=== PATIENT | female | born 1980 ===

== ENCOUNTER 2017-02-22 19:14 | Emergency (ER) | payer SELFPAY ==
[2017-02-22 19:14] VITALS: BMI 30.5
[2017-02-22 19:22] VITALS: RESP 16; TEMP 98.4; O2SAT 98
[2017-02-22] MEDS ORDERED: Lactated Ringer's 1,000 ML IV SCH (19:45)
[2017-02-22] MEDS ORDERED: Iohexol 240 (50 ml) PO ONE (19:46)
--- NOTE | 2017-02-22 19:50 | C.PDOC ---
History Of Present Illness 36 year old female presents to the ER with a complaint of lower abdominal pain since 14:00, associated with slight nausea. Denies dysuria, diarrhea, or fever. Chief Complaint (Nursing): Abdominal Pain History Per: Patient History/Exam Limitations: no limitations Onset/Duration Of Symptoms: Hrs Current Symptoms Are (Timing): Still Present Location Of Pain/Discomfort: RLQ, LLQ Radiation Of Pain To:: None Quality Of Discomfort: Unable To Describe Associated Symptoms: Nausea. denies: Fever, Chills, Diarrhea, Urinary Symptoms Exacerbating Factors: None Alleviating Factors: None Recent travel outside of the [place]: No Abnormal Vaginal Bleeding: No Past Medical History Reviewed: Historical Data, Nursing Documentation, Vital Signs Vital Signs: Last Vital Signs Temp 98.4 F 02/22/17 19:20 Pulse 74 02/22/17 19:20 Resp 16 02/22/17 19:20 BP 111/75 02/22/17 19:20 Pulse Ox 98 02/22/17 19:51 - Medical History PMH: No Chronic Diseases Surgical History: - [facility] Procedures ASPIRAT CURET-POST DELIV (10/28/14) Family History: States: Stroke, Hypertension - Social History Hx Alcohol Use: No Hx Substance Use: No - Immunization History Hx Tetanus Toxoid Vaccination: No Hx Influenza Vaccination: No Hx Pneumococcal Vaccination: No Review Of Systems Constitutional: Negative for: Fever, Chills Gastrointestinal: Positive for: Nausea, Abdominal Pain. Negative for: Diarrhea Genitourinary: Negative for: Dysuria Physical Exam - Physical Exam Appears: Non-toxic, Other (Moderate distress) Skin: Normal Color, Warm, Dry Head: Atraumatic, Normacephalic Eye(s): bilateral: Normal Inspection Oral Mucosa: Moist Chest: Symmetrical Cardiovascular: Rhythm Regular Respiratory: Normal Breath Sounds, No Rales, No Rhonchi, No Wheezing Gastrointestinal/Abdominal: Soft, Tenderness (LLQ), No Guarding, No Rebound Neurological/Psych: Oriented x3, Normal Speech, Other (No focal deficits) ED Course And Treatment - Laboratory Results Result Diagrams: 02/22/17 20:20 02/22/17 20:20 O2 Sat by Pulse Oximetry: 98 (Room air) Pulse Ox Interpretation: Normal Progress Note: CT abd/pel, blood work, and urinalysis ordered. Bentyl and IV fluids administered. Disposition Counseled Patient/Family Regarding: Diagnosis - Disposition Referrals: [facility] [Outside] Disposition: HOME/ ROUTINE Disposition Time: 22:36 Condition: STABLE Prescriptions: Dicyclomine [Bentyl] 10 mg PO QID #14 cap Instructions: Abdominal Pain (ED), Enteritis (ED) Forms: [facility] (Persian), Gen Discharge Inst Kosovan - POA Present On Arrival: None - Clinical Impression Clinical Impression: Abdominal pain, Enteritis - Scribe Statement The provider has reviewed the documentation as recorded by the Scribrichard Hunt All medical record entries made by the Pauloibrichard were at my direction and personally dictated by me. I have reviewed the chart and agree that the record accurately reflects my personal performance of the history, physical exam, medical decision making, and the department course for this patient. I have also personally directed, reviewed, and agree with the discharge instructions and disposition.
[2017-02-22] MEDS ORDERED: Iohexol 240 (50 ml) ONE (20:00)
[2017-02-22] MEDS ORDERED: Lactated Ringer's 1,000 ML ONE (20:00)
[2017-02-22 20:27] LABS: RBC URINE < 1 /hpf (0-3); URINE BACTERIA RARE (<OCC); URINE BILIRUBIN NEGATIVE (NEGATIVE); URINE BLOOD NEGATIVE (NEGATIVE); URINE COLOR Colorless (YELLOW); URINE GLUCOSE (UA) NORMAL (Normal); URINE KETONE NEGATIVE (NEGATIVE); URINE LEUKOCYTE ESTERASE NEG Leu/uL (Negative); URINE PROTEIN NEGATIVE (NEGATIVE); URINE UROBILINOGEN NORMAL mg/dL (0.2-1.0); WBC URINE < 1 /hpf (0-5)
[2017-02-22 20:28] LABS: BASO % 0.3 % (0.0-2.0); EOS # 0.3 K/uL (0.0-0.7); HEMATOCRIT 35.5 % (34.0-47.0); LYMPH # 2.1 K/uL (1.0-4.3); LYMPH % 25.9 % (20.0-40.0); MEAN CELL VOLUME 88.4 fL (81.0-99.0); MEAN CORPUSCULAR HEMOGLOBIN 29.7 pg (27.0-31.0); MEAN CORPUSCULAR HGB CONC 33.6 g/dL (33.0-37.0); MEAN PLATELET VOLUME 10.7 fL (7.2-11.7); MONO # 0.4 K/uL (0.0-0.8); MONO % 5.4 % (0.0-10.0); RED CELL DISTRIBUTION WIDTH 13.3 % (11.5-14.5); WHITE BLOOD COUNT 8.1 K/uL (4.8-10.8)
[2017-02-22 20:37] LABS: ALKALINE PHOSPHATASE 73 U/L (38-126); ALT/SGPT 27 U/L (9-52); AST/SGOT 29 U/L (14-36); BILIRUBIN,TOTAL 0.2 mg/dL (0.2-1.3); BLOOD UREA NITROGEN 10 mg/dL (7-17); CALCIUM 8.1 mg/dl (8.6-10.4); CARBON DIOXIDE 24 mmol/L (22-30); CHLORIDE 105 mmol/L (98-107); GFR AFRICAN-AMERICAN > 60; GLUCOSE,RANDOM 88 mg/dL (65-105); POTASSIUM 3.6 mmol/L (3.6-5.2); SODIUM 137 mmol/L (132-148); TOTAL PROTEIN 7.6 g/dL (6.3-8.3)
--- NOTE | 2017-02-22 22:29 | CT ---
EXAM: CT Abdomen and Pelvis With Intravenous Contrast EXAM DATE/TIME: 02/22/2017 7:46 PM CLINICAL HISTORY: 36 years old, female; Pain; Abdominal pain; Localized; Left lower quadrant (llq); Additional info: Llq abd pain TECHNIQUE: Axial computed tomography images of the abdomen and pelvis with intravenous contrast. All CT scans at this facility use one or more dose reduction techniques, viz.: automated exposure control; ma/kV adjustment per patient size (including targeted exams where dose is matched to indication; i.e. head); or iterative reconstruction technique. No reconstructions were provided. CONTRAST: 100 mL of burl622 administered intravenously. COMPARISON: No relevant prior studies available. FINDINGS: The liver is normal. The spleen is normal. The pancreas is normal. No gallstones. No hydronephrosis or perinephric stranding. A few scattered colonic diverticuli are noted. A normal appendix is identified images 115 through 130. The uterus and ovaries are normal. No aortic aneurysm or dissection. IMPRESSION: No acute findings.
[2017-02-22 22:49] VITALS: BP 132/78; PULSE 78
== END 2017-02-22 22:48 | disposition home or self-care (01) ==
LOC: C.ER 19:14
DX: K52.9 Noninfective gastroenteritis and colitis, unspecified (principal); R10.32 Left lower quadrant pain
CPT/HCPCS: 74177; 80053; 81001; 83690; 84703; 85025; 96360; 96372; 99284; J0500; J7120; Q9966

== ENCOUNTER 2017-09-06 11:20 | Emergency (ER) | payer OTHER ==
[2017-09-06 11:20] VITALS: BMI 30.5
[2017-09-06 11:28] VITALS: BP 107/73; TEMP 99.1
--- NOTE | 2017-09-06 11:58 | C.PDOC ---
History Of Present Illness 36 year old female 6 weeks presents to the ED c/o cough, nasal congestion , post tussive chest pain for the past 10 days. Patient reports she was taking OTC medication at home but stopped due to not knowing if it was going to affect . Patient's LMP was on July 24. Patient denies fever , chills, vomiting, vaginal bleeding, vaginal discharge. Time Seen by Provider: 09/06/17 11:33 Chief Complaint (Nursing): Cough, Cold, Congestion History Per: Patient History/Exam Limitations: no limitations Onset/Duration Of Symptoms: Days (10) Current Symptoms Are (Timing): Still Present Location Of Pain: Throat Sick Contacts (Context): None Associated Symptoms: Cough, Nasal Congestion. denies: Fever, Chills Ear Symptoms: Bilateral: None Recent travel outside of the [place]: No Additional History Per: Patient Past Medical History Reviewed: Historical Data, Nursing Documentation, Vital Signs Vital Signs: Last Vital Signs Temp 99.1 F 09/06/17 11:26 Pulse 86 09/06/17 11:26 Resp 16 09/06/17 11:26 BP 107/73 09/06/17 11:26 Pulse Ox 98 09/06/17 12:01 - Medical History PMH: No Chronic Diseases Surgical History: - [facility] Procedures ASPIRAT CURET-POST DELIV (10/28/14) Family History: States: Stroke, Hypertension - Social History Hx Alcohol Use: No Hx Substance Use: No - Immunization History Hx Tetanus Toxoid Vaccination: No Hx Influenza Vaccination: No Hx Pneumococcal Vaccination: No Review Of Systems Constitutional: Negative for: Fever, Chills ENT: Positive for: Nose Congestion. Negative for: Throat Pain Respiratory: Positive for: Cough. Negative for: Shortness of Breath Gastrointestinal: Negative for: Nausea, Vomiting Genitourinary: Negative for: Vaginal Discharge, Vaginal Bleeding Skin: Negative for: Rash Physical Exam - Physical Exam Appears: Non-toxic, No Acute Distress Skin: Normal Color, Warm, Dry Head: Atraumatic, Normacephalic Eye(s): bilateral: Normal Inspection Ear(s): Bilateral: Normal Nose: No Discharge Oral Mucosa: Moist Throat: Normal, No Erythema, No Exudate Neck: Normal ROM, Supple Chest: Symmetrical Cardiovascular: Rhythm Regular Respiratory: Normal Breath Sounds, No Rales, No Rhonchi, No Wheezing Extremity: Normal ROM, No Tenderness, No Swelling Neurological/Psych: Oriented x3, Normal Speech Gait: Steady ED Course And Treatment O2 Sat by Pulse Oximetry: 98 (ON RA) Pulse Ox Interpretation: Normal Medical Decision Making Medical Decision Making: Impression: cough, congestion for the past 10 days Plan: * Albuterol 2.5 mg INH * Prednisone 40 mg PO Patient feeling much better, Disposition Counseled Patient/Family Regarding: Need For Followup, Rx Given - Disposition Referrals: [facility] [Outside] Disposition: HOME/ ROUTINE Disposition Time: 12:57 Condition: STABLE Prescriptions: Albuterol HFA [Ventolin HFA 90 mcg/actuation (8 g)] 1 puff IH QID PRN #1 puff PRN Reason: Cough Prednisone [Deltasone] 40 mg PO DAILY #6 tablet Instructions: Acute Bronchitis Forms: [facility] (Romansh), Gen Discharge Inst Romansh - POA Present On Arrival: None - Clinical Impression Clinical Impression: Bronchitis - Scribe Statement The provider has reviewed the documentation as recorded by the Scribrichard Casas All medical record entries made by the Scribe were at my direction and personally dictated by me. I have reviewed the chart and agree that the record accurately reflects my personal performance of the history, physical exam, medical decision making, and the department course for this patient. I have also personally directed, reviewed, and agree with the discharge instructions and disposition.
[2017-09-06] MEDS: Albuterol 0.083% Inhal Sol (2.5 mg/3 mL) UD INH SCH ×2 (12:00→12:11)
[2017-09-06] MEDS ORDERED: Albuterol 0.083% Inhal Sol (2.5 mg/3 mL) UD ONE (12:03)
[2017-09-06 13:02] VITALS: PULSE 99; RESP 18; O2SAT 99
== END 2017-09-06 13:02 | disposition home or self-care (01) ==
LOC: C.ER 11:20
DX: O26.891 Other specified pregnancy related conditions, first trimester (principal); J40 Bronchitis, not specified as acute or chronic; Z3A.00 Weeks of gestation of pregnancy not specified

== ENCOUNTER 2017-10-02 22:07 | Emergency (ER) | payer SELFPAY ==
[2017-10-02 22:08] VITALS: BMI 30.5
[2017-10-02 22:15] VITALS: O2SAT 98
[2017-10-02 23:14] LABS: BASO % 0.6 % (0.0-2.0); EOS # 0.3 K/uL (0.0-0.7); EOS % 4.4 % (0.0-4.0); HEMOGLOBIN 11.1 g/dL (11.0-16.0); LYMPH # 1.6 K/uL (1.0-4.3); LYMPH % 20.5 % (20.0-40.0); MEAN CELL VOLUME 88.5 fL (81.0-99.0); MEAN CORPUSCULAR HEMOGLOBIN 30.1 pg (27.0-31.0); MEAN PLATELET VOLUME 10.5 fL (7.2-11.7); MONO # 0.8 K/uL (0.0-0.8); NEUT # 5.1 K/uL (1.8-7.0); NEUT % 64.5 % (50.0-75.0); RBC 3.67 Mil/uL (3.80-5.20); RED CELL DISTRIBUTION WIDTH 13.3 % (11.5-14.5); WHITE BLOOD COUNT 7.9 K/uL (4.8-10.8)
[2017-10-02 23:17] LABS: SQUAMOUS EPITHIAL 6 /hpf (0-5); URINE BACTERIA RARE (<OCC); URINE BILIRUBIN NEGATIVE (NEGATIVE); URINE BLOOD NEGATIVE (NEGATIVE); URINE CLARITY Clear (Clear); URINE COLOR Straw (YELLOW); URINE GLUCOSE (UA) NORMAL (Normal); URINE LEUKOCYTE ESTERASE NEG Leu/uL (Negative); URINE PROTEIN NEGATIVE (NEGATIVE); URINE UROBILINOGEN NORMAL mg/dL (0.2-1.0)
[2017-10-02 23:27] LABS: ALB/GLOB RATIO 1.5 (1.0-2.1); ALBUMIN 3.8 g/dL (3.5-5.0); ALT/SGPT 17 U/L (9-52); AST/SGOT 23 U/L (14-36); BLOOD UREA NITROGEN 7 mg/dL (7-17); CALCIUM 8.5 mg/dl (8.6-10.4); GFR AFRICAN-AMERICAN > 60; GFR NON-AFRICAN AMERICAN > 60
--- NOTE | 2017-10-03 | C.PDOC ---
History Of Present Illness 36 year old female who is 10 weeks by date presents to the ED c/o vaginal spotting. Patient reports she has not had any prior US for her . Patient is also c/o lower abdominal pain since this morning as well. Time Seen by Provider: 10/02/17 22:47 Chief Complaint (Nursing): Abdominal Pain History Per: Patient History/Exam Limitations: no limitations Onset/Duration Of Symptoms: Hrs Current Symptoms Are (Timing): Still Present Location Of Pain/Discomfort: Suprapubic Radiation Of Pain To:: None Quality Of Discomfort: Cramping Exacerbating Factors: None Alleviating Factors: None Recent travel outside of the [place]: No Additional History Per: Patient Abnormal Vaginal Bleeding: No Past Medical History Reviewed: Historical Data, Nursing Documentation, Vital Signs Vital Signs: Last Vital Signs Temp 98.3 F 10/03/17 00:15 Pulse 74 10/03/17 00:15 Resp 18 10/03/17 00:15 BP 106/76 10/03/17 00:15 Pulse Ox 98 10/03/17 00:47 - Medical History PMH: No Chronic Diseases Surgical History: - [facility] Procedures ASPIRAT CURET-POST DELIV (10/28/14) Family History: States: Stroke, Hypertension - Social History Hx Alcohol Use: No Hx Substance Use: No - Immunization History Hx Tetanus Toxoid Vaccination: No Hx Influenza Vaccination: No Hx Pneumococcal Vaccination: No Review Of Systems Constitutional: Negative for: Fever, Chills Cardiovascular: Negative for: Chest Pain, Palpitations Respiratory: Negative for: Shortness of Breath Gastrointestinal: Positive for: Abdominal Pain Genitourinary: Positive for: Vaginal Discharge Musculoskeletal: Negative for: Back Pain Physical Exam - Physical Exam Appears: Non-toxic, No Acute Distress Skin: Normal Color, Warm, Dry Head: Atraumatic, Normacephalic Eye(s): bilateral: Normal Inspection Oral Mucosa: Moist Neck: Normal ROM, Supple Chest: Symmetrical Cardiovascular: Rhythm Regular Respiratory: Normal Breath Sounds, No Rales, No Rhonchi, No Wheezing Gastrointestinal/Abdominal: Soft, Tenderness (diffuse suprapubic), No Guarding, No Rebound, Other (gravid) Extremity: Normal ROM, No Tenderness, No Swelling Neurological/Psych: Oriented x3, Normal Speech Gait: Steady ED Course And Treatment - Laboratory Results Result Diagrams: 10/02/17 23:10 10/02/17 23:10 Lab Interpretation: Normal (O+,) Urine POC: Positive O2 Sat by Pulse Oximetry: 98 (ON RA) Pulse Ox Interpretation: Normal Reevaluation Time: 00:01 Reassessment Condition: Improved Medical Decision Making Medical Decision Making: IUP sub chorionic hemorrhage Disposition Doctor Will See Patient In The: Office Counseled Patient/Family Regarding: Studies Performed, Diagnosis - Disposition Referrals: [facility] [Outside] [facility] [Outside] [facility] [Outside] [facility] [Outside] Disposition: HOME/ ROUTINE Disposition Time: 00:02 Condition: GOOD Additional Instructions: sigue con [facility] para aline cuidados prenatales Sigue tomando paul vitamina diario 9 semanas, 3 strong, humberto latando O+ Instructions: Threatened Miscarriage, - The Third Month Forms: [employer] (Cuban) Print Language: GERMAN - Clinical Impression Clinical Impression: - Scribe Statement The provider has reviewed the documentation as recorded by the Scribe Miller Caass All medical record entries made by the Scribe were at my direction and personally dictated by me. I have reviewed the chart and agree that the record accurately reflects my personal performance of the history, physical exam, medical decision making, and the department course for this patient. I have also personally directed, reviewed, and agree with the discharge instructions and disposition.
[2017-10-03 00:15] VITALS: BP 106/76; PULSE 74; RESP 18; TEMP 98.3
--- NOTE | 2017-10-03 17:35 | US ---
PROCEDURE: OB Pelvic Ultrasound HISTORY: 10 weeks, spotting LMP: 07/24/2017 COMPARISON: None available. FINDINGS: UTERUS: Gestational sac: MSD = 3.84 cm = 8 weeks 1 day. Heart rate: 126 bpm. age (Ultrasound estimated 9 weeks 3 days 0 weeks 5 days Shelley-gestational hemorrhage: Small subchorionic hemorrhage measuring approximately 1.1 x 1.0 cm. Date of delivery (Ultrasound estimated) : 05/04/2017 Uterus measures 13.1 x 5.0 x 8.3 cm. Normal in size and appearance. CERVIX: Measures 3.52 cm. Long and closed. No cervical abnormality seen. RIGHT OVARY: Measures 2.9 x 2.4 x 2.7 cm. No mass lesion. Normal flow. LEFT OVARY: Measures 2.6 x 1.9 x 2.4 cm. No solid mass. Normal flow. FREE FLUID: None. OTHER FINDINGS: None. IMPRESSION: Single living intrauterine gestation with average ultrasound age 9 weeks 3 days 0 weeks 5 days. heart rate document at 126 BPM There is a small subchorionic hemorrhage as above. Preliminary report provided by overnight radiology service
== END 2017-10-03 00:16 | disposition home or self-care (01) ==
LOC: C.ER 22:07
DX: O20.9 Hemorrhage in early pregnancy, unspecified (principal); Z3A.09 9 weeks gestation of pregnancy

== ENCOUNTER 2018-01-19 21:00 | Emergency (ER) | payer OTHER ==
[2018-01-19 21:31] VITALS: BMI 26.4
[2018-01-19 22:06] LABS: SQUAMOUS EPITHIAL 1 /hpf (0-5); URINE BACTERIA RARE (<OCC); URINE BILIRUBIN NEGATIVE (NEGATIVE); URINE BLOOD NEGATIVE (NEGATIVE); URINE CLARITY Clear (Clear); URINE COLOR Straw (YELLOW); URINE GLUCOSE (UA) NORMAL (Normal); URINE LEUKOCYTE ESTERASE TRACE Leu/uL (Negative); URINE PROTEIN NEGATIVE (NEGATIVE); URINE UROBILINOGEN NORMAL mg/dL (0.2-1.0)
--- NOTE | 2018-01-20 00:16 | OBHP ---
Datetime: 01/19/2018 23:54 IP Adm Impression: , intrauterine ; No Active Labor; Intact Membranes IP Admit Plan: Discharge home Admit Comment, IP Provider: 37 y.o. , LMP 07/24/17, RANDY 05/01/18, EGA 25 weeks c/o generalized abdominal, pelvic and left sided abdominal pain, onset 1200 hours. Actually, had a bout of similar pa in Thursday which resolved spontaneously. Pain scale 3/10; described as a heaviness, and accompanied by heartburn. Last had sexual intercourse 2 or 3 days ago. Denies dizziness, headaches, blurred visi on or spots. Youngest child has been coughing sporadically x 2 days. Denies cough or fever; but is a little stuffy, (+) post nasal drip. care: [facility]; next appointment, Thu01/27/18. Jessica merced issue: AMA, prev C/S. P Ob: x 2: 2003, male, 7lb. 2006, female, 6+lb. 2009, C/S. male, 7lb - transverse lie. All a t [facility]; no complications. 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 HPV(+). denies myomata, abnormal Pap, ovarian cysts PMH: denies PSH: C/S; D_C; I_D of left ?parotid gland abscess, age 4 NKDA Meds: PNV Soc Hx: denies tobacco, illicit drug or EtOH use. . 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 Attempts to drink 6 bottles of water daily P.E.: as above. Mildly obese, in NAD. Awake, alert, oriented to time, person and place. Pleasant a nd cooperative. - U.A: trace leuk esterase, S.G. 1.002, pH 7 Assessment: 37 y.o. P3013, 25 weeks, prev C/S, generalized abdominal pain: aetiology unclear. DDx: musculoskeletal fatigue, post nasal drip. FHR appropriate for gestational age. Clinically stable. Plan: 1) Discharge home 2) Benadryl 25 mg p.o. as directed 3) TUMS, take as directed 4) Keep scheduled appointment Pelvic Type - PN: Adequate Extremities - PN: Normal Abdomen - PN: Normal Back - PN: Normal Breast - PN: Not Done Lungs - PN: Normal Heart - PN: Normal Thyroid - PN: Not Done Neurologic - PN: Normal HEENT - PN: Normal General - PN: Normal FHR - Baseline A Provider: 130 Contraction Comments Provider: none Comments, ACOG Physical Exam: Abdomen: Obese. Gravid. Soft. Minimal Left sided discomfort. Healed Pf annenstiel scar All other systems reviewed and are negative Gestation - Est Wks by US: 25.0 EGA AdmitDate IP: 25.0 IP Chief Complaint: Maternal discomfort NICHD Variability Prov Fetus A: Moderate 6-25bpm NICHD Decel Fetus A IP Provider: None Dilatation, Provider: 0 Effacement, Provider: 0 Station, Provider: n/a Genitourinary Exam: Normal DTRs - PN: Not Done
[2018-01-20 10:54] VITALS: BP 107/67; PULSE 76; RESP 20; TEMP 97.5
== END 2018-01-20 00:04 | disposition home or self-care (01) ==
LOC: C.EROB 21:00
DX: O26.892 Other specified pregnancy related conditions, second trimester (principal); R10.9 Unspecified abdominal pain; R10.2 Pelvic and perineal pain; Z3A.25 25 weeks gestation of pregnancy

== ENCOUNTER 2018-04-05 10:54 | Outpatient (CLI) | payer OTHER | END 2018-04-05 10:55 | disposition home or self-care (01) | LOC: C.LAB 10:54 | DX: Z34.80 Encounter for supervision of other normal pregnancy, unspecified trimester (principal) ==

== ENCOUNTER 2018-04-23 06:50 | Inpatient (IN) | payer SELFPAY ==
[2018-04-23 07:20] VITALS: BMI 27.4
[2018-04-23] MEDS ORDERED: Lactated Ringer's 1,000 ML IV ONE (07:20)
[2018-04-23] MEDS ORDERED: cefOXitin IV 2 gm in Dextrose 2 GM/50 ML BAG IVPB ONE ×2 (07:24→08:03)
[2018-04-23] MEDS ORDERED: Lactated Ringer's 1,000 ML IV SCH (07:30)
[2018-04-23] MEDS ORDERED: Sodium Citrate/Citric Acid 15 ml Sol PO ONE (07:45)
[2018-04-23] MEDS ORDERED: Sodium Citrate/Citric Acid 15 ml Sol ONE (08:03)
[2018-04-23] MEDS ORDERED: Oxytocin 20 units in LR 2,000 ML IV ONE (08:03)
[2018-04-23 08:12] LABS: BASO % 0.4 % (0.0-2.0); EOS # 0.3 K/uL (0.0-0.7); EOS % 4.7 % (0.0-4.0); HEMOGLOBIN 11.9 g/dL (11.0-16.0); LYMPH # 1.4 K/uL (1.0-4.3); LYMPH % 21.7 % (20.0-40.0); MEAN CELL VOLUME 88.2 fL (81.0-99.0); MEAN CORPUSCULAR HEMOGLOBIN 29.6 pg (27.0-31.0); MEAN CORPUSCULAR HGB CONC 33.5 g/dL (33.0-37.0); MEAN PLATELET VOLUME 12.1 fL (7.2-11.7); MONO # 0.5 K/uL (0.0-0.8); MONO % 7.5 % (0.0-10.0); NEUT # 4.4 K/uL (1.8-7.0); NEUT % 65.7 % (50.0-75.0); NRBC % 0.1 % (0.0-2.0); RBC 4.01 Mil/uL (3.80-5.20); RED CELL DISTRIBUTION WIDTH 13.9 % (11.5-14.5); WHITE BLOOD COUNT 6.6 K/uL (4.8-10.8)
[2018-04-23 08:17] LABS: SQUAMOUS EPITHIAL 3 /hpf (0-5); URINE BACTERIA RARE (<OCC); URINE BILIRUBIN NEGATIVE (NEGATIVE); URINE BLOOD NEGATIVE (NEGATIVE); URINE CLARITY Clear (Clear); URINE COLOR Straw (YELLOW); URINE GLUCOSE (UA) NORMAL (Normal); URINE LEUKOCYTE ESTERASE NEG Leu/uL (Negative); URINE PROTEIN NEGATIVE (NEGATIVE); URINE UROBILINOGEN NORMAL mg/dL (0.2-1.0)
[2018-04-23 08:36] LABS: ALB/GLOB RATIO 1.2 (1.0-2.1); ALBUMIN 3.9 g/dL (3.5-5.0); ALT/SGPT 6 U/L (9-52); AST/SGOT 24 U/L (14-36); BLOOD UREA NITROGEN 9 mg/dL (7-17); CALCIUM 8.7 mg/dl (8.6-10.4); GFR NON-AFRICAN AMERICAN > 60
[2018-04-23] MEDS ORDERED: Morphine 1 mg/ml preservative-free Inj(Duramorph) ONE (08:54)
[2018-04-23] MEDS ORDERED: Phenylephrine 10 mg/ml Inj ONE (08:54)
[2018-04-23] MEDS ORDERED: Oxycodone/Acetaminophen 5/325 mg Tab PO PRN (10:23)
--- NOTE | 2018-04-23 12:42 | PCM.SURG1 ---
Surgeon's Initial Post Op Note - Surgeon's Notes Surgeon: Latha Gerber MD Counter Person: Alvarado Fox MD; 2nd Asst: Nat Alexis DO, PGY-1 Type of Anesthesia: Spinal Anesthesia Administered By: Isaias Cazares DO Pre-Operative Diagnosis: 39 weeks gestation; Advanced maternal age; previous C/S; desires permanent sterilization. Operative Findings: Manuelito breech. Live, male infant. LSA position, weight 6lb 7oz; 's 9/9. Cord pH 7.31. Normal uterus; normal ovaries and fallopian tubes, bilaterally. Post-Operative Diagnosis: same; Breech presentation Operation Performed: repeat LTCS; bilateral total salpingectomy Specimen/Specimens Removed: Right and left fallopian tubes Estimated Blood Loss: EBL {In ML}: 600 (U.O. 300 mL, clear; IVFs 1,100 mL LR with 20 units pitocin) Blood Products Given: N/A Drains Used: No Drains Post-Op Condition: Good Date of Surgery/Procedure: 04/23/18 Time of Surgery/Procedure: 10:30
--- NOTE | 2018-04-23 15:50 | OBHP ---
Datetime: 04/23/2018 07:12 IP Adm Impression: Term, intrauterine ; No Active Labor IP Admit Plan: Admit to unit; Initiate Section protocol Admit Comment, IP Provider: Patient predomnantly Amharic-speaking; Itzel Giancarlo Gomez, served as arrington slator 37 y.o. , LMP 07/26/15, RANDY 05/04/18, EGA 39 weeks, previous C/S for elective repeat C/S and permanent sterilization. (+) AFM; denies lOF, VB. (+) occ and mild Ctx. P care: [facility]; A MA; previous C/S. Consent for sterilization signed 02/10/18. P Ob: x 2, 2003, male, 7lb 5oz; 2006, female, 6lb 12oz, 2009, C/S, male, 7lb 2oz, Breech. All at [facility]; no complications. 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 Denies STIs except HPV(+). Denies h/o myomata, ovarian cysts or abnormal Pap PMH: denies PSH: C/S, D_C Allergies: ibuprofen = rash No food allergies Meds: PNV - QD Soc Hx: denies tobacco, illicit drug or EtOH use. x 2 1/2 years; together 10 years. Unempl oyed. Lives with and children Fam Hx: Mother age 65 - complications from DM. Father age 70 - CVA. Older siste r - uterine cancer P.E.: as above. WD in NAD. Awake, alert, oriented to time, person and place. Pleasant and cooperat ronnie. present Assessment: 37 y.o. P3013, 39 weeks, previous C/S for elective repeat C/S. Patient has reaffirmed desire for permanent sterilization. Possible risks and complications for the anticipated procedures were discussed; patient offered no questions. Consents were signed, dated, witnessed and placed in pa tient's chart. Patient last ate 1900 hours; last drank at 2200 hours. Category 1 tracing. Patient is clincially stable. 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 Pelvic Type - PN: Not Done Extremities - PN: Normal Abdomen - PN: Normal Back - PN: Normal Breast - PN: Not Done Lungs - PN: Normal Heart - PN: Normal Thyroid - PN: Not Done Neurologic - PN: Normal HEENT - PN: Normal General - PN: Normal FHR - Baseline A Provider: 125 Contraction Comments Provider: irregular Comments, ACOG Physical Exam: Abdomen: Obese. Gravid. Soft, non tender. Healed Pfannenstiel scar. Fu ndal height 39cm All other systems reviewed and arenegative Gestation - Est Wks by US: 39.0 IP Hx Assessment: The History has been Reviewed and is Current EGA AdmitDate IP: 39.0 IP Chief Complaint: Scheduled Section NICHD Variability Prov Fetus A: Moderate 6-25bpm NICHD Accel Fetus A IP Provider: 15X15 FHR Category Provider Fetus A: Category I NICHD Decel Fetus A IP Provider: None Dilatation, Provider: deferred Genitourinary Exam: Not Done DTRs - PN: Not Done
--- NOTE | 2018-04-23 15:53 | OBADHP ---
Datetime: 04/23/2018 07:12 Admit Comment, IP Provider: Patient predomnantly Tuvaluan-speaking; Itzel GomezGiancarlo, served as arrington slator 37 y.o. , LMP 07/26/15, RANDY 05/04/18, EGA 39 weeks, previous C/S for elective repeat C/S and permanent sterilization. (+) AFM; denies lOF, VB. (+) occ and mild Ctx. P care: [facility]; A MA; previous C/S. Consent for sterilization signed 02/10/18. P Ob: x 2, 2003, male, 7lb 5oz; 2006, female, 6lb 12oz, 2009, C/S, male, 7lb 2oz, Breech. All at [facility]; no complications. 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 Denies STIs except HPV(+). Denies h/o myomata, ovarian cysts or abnormal Pap PMH: denies PSH: C/S, D_C Allergies: ibuprofen = rash No food allergies Meds: PNV - QD Soc Hx: denies tobacco, illicit drug or EtOH use. x 2 1/2 years; together 10 years. Unempl oyed. Lives with and children Fam Hx: Mother age 65 - complications from DM. Father age 70 - CVA. Older siste r - uterine cancer P.E.: as above. WD in NAD. Awake, alert, oriented to time, person and place. Pleasant and cooperat ronnie. present Assessment: 37 y.o. P3013, 39 weeks, previous C/S for elective repeat C/S. Patient has reaffirmed desire for permanent sterilization. Possible risks and complications for the anticipated procedures were discussed; patient offered no questions. Consents were signed, dated, witnessed and placed in mona nur's chart. Patient last ate 1900 hours; last drank at 2200 hours. Category 1 tracing. Patient is clincially stable. 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 Pelvic Type - PN: Not Done Extremities - PN: Normal Abdomen - PN: Normal Back - PN: Normal Breast - PN: Not Done Lungs - PN: Normal Heart - PN: Normal Thyroid - PN: Not Done Neurologic - PN: Normal HEENT - PN: Normal General - PN: Normal FHR - Baseline A Provider: 125 Contraction Comments Provider: irregular Comments, ACOG Physical Exam: Abdomen: Obese. Gravid. Soft, non tender. Healed Pfannenstiel scar. Fu ndal height 39cm All other systems reviewed and arenegative Gestation - Est Wks by US: 39.0 IP Hx Assessment: The History has been Reviewed and is Current Vital Signs Provider: Reviewed; Within Normal Limits IP Chief Complaint: Scheduled Section NICHD Variability Prov Fetus A: Moderate 6-25bpm NICHD Accel Fetus A IP Provider: 15X15 FHR Category Provider Fetus A: Category I NICHD Decel Fetus A IP Provider: None Dilatation, Provider: deferred Genitourinary Exam: Not Done DTRs - PN: Not Done EGA AdmitDate IP: 39.0 IP Adm Impression: Term, intrauterine ; No Active Labor IP Admit Plan: Admit to unit; Initiate Section protocol Datetime: 01/19/2018 23:54 Effacement, Provider: 0 Station, Provider: n/a
--- NOTE | 2018-04-23 16:10 | OBDS ---
DELIVERY PERSONNEL Delivery Doctor: Aubrey Gerber MD Scrub Nurse: Malgorzata Clancy Nutrition Faculty Member: Itzel Gomez Anesthesiologist: Dr Cazares Resident: Dr Alexis MATERNAL INFORMATION Delivery Anesthesia: Spinal Medications in Delivery: pitocin 20units Estimated Blood Loss (ml): 600 Placenta Cultured: No Maternal Complications: Other Other Maternal Complications: Previuos c/s GBS unknown Provider Comments: Uncomplicated, atraumatic breech extraction (incidental finding of Manuelito breech p resentation), live male , LSA position. Weight 6lb 7oz, 's 9/9. Cord pH 7.31. Unremarkabke bilateral total salpingectomy with Covidien apparatus. Hemostasis assured throughout the entire proc edure. Patient tolerated procedure well. Transferred back to LDR#2 in stable condition. LABOR SUMMARY EDC: 04/30/2018 00:00 No. Babies in Womb: 1 Attempted: No Labor Anesthesia: None LABOR INFORMATION Reason for Induction: Not Applicable Oxytocin: N/A Group B Beta Strep: Not Done STAGES OF LABOR Stage 3 hrs: 0 Stage 3 min: 1 CSECTION DELIVERY Primary Indication: Repeat Elective CSection Urgency: Elective CSection Incidence: Repeat Labor: N/A Elective: Elective CSection Incision: Lower Uterine Transverse BABY A INFORMATION Delivery Date/Time: 04/23/2018 09:30 Method of Delivery: Born in Route : No : N/A Forceps: N/A Vacuum Extraction: N/A Shoulder Dystocia : No SHOULDER DYSTOCIA BABY A Infant Delivery Date/Time: 04/23/2018 09:30 PRESENTATION/POSITION BABY A Presentation: Breech Breech Presentation: N/A PLACENTA INFORMATION BABY A Placenta Delivery Time : 04/23/2018 09:31 Placenta Method of Delivery: Manual Removal Placenta Status: Delivered SCORES BABY A Heart Rate 1 min: >100 bpm Resp Effort 1 min: Good Cry Reflex Irritability 1 min: Cough or Sneeze or Pulls Away Muscle Tone 1 min: Active Motion Color 1 min: Body Bostic, Extremities Blue Resuscitation Effort 1 min: Tactile Stimulation SCORE 1 MIN: 9 Heart Rate 5 min: >100 bpm Resp Effort 5 min: Good Cry Reflex Irritability 5 min: Cough or Sneeze or Pulls Away Muscle Tone 5 min: Active Motion Color 5 min: Body Bostic, Extremities Blue Resuscitation Effort 5 min: Tactile Stimulation SCORE 5 MIN: 9 INFANT INFORMATION BABY A Gestational Age at Delivery: 39.0 Gestational Status: Term Outcome : Liveborn Condition : Stable Sex: Male IDENTIFICATION/MEDS BABY A ID Band Number: [id number] ID Band Location: Left Leg; Left Arm Sensor Applied: Yes Sensor Number: [id number] Sensor Location : Cord Clamp WEIGHT/LENGTH BABY A Infant Birthweight (gms): 2910 Weight (lb): 6 Weight (oz): 7 Infant Length Inches: 19.50 Length cms: 49.5 CORD INFORMATION BABY A No. Cord Vessels: 3 Nuchal Cord : N/A Infant Cord pH Baby Venous: 7.32 Cord Blood Taken: Yes Suction: Mouth; Nose ASSESSMENT BABY A Infant Complications: None Physical Findings at Delivery: Within Normal Limits Respirations: Appears Normal Cold Water Machine Operator/ALS Called : No Care By: Dr Schwartz Transferred To: Remains with Mother
[2018-04-23] MEDS: Simethicone 80 mg Chewtab PO SCH ×3 (18:24→22:22)
--- NOTE | 2018-04-23 18:33 | OP ---
PROCEDURE DATE: 04/23/2018 SURGEON: Latha Gerber MD LACE FINISHER: Alvarado Fox MD SECOND FARM MARKETER: Nisha Alexis DO, PGY-1. ANESTHESIOLOGY: Isaias Cazares DO ANESTHESIA TYPE: Spinal. PREOPERATIVE DIAGNOSES: 39 weeks' gestation, advanced maternal age, previous Caesarean section, desires permanent sterilization. POSTOPERATIVE DIAGNOSES: 39 weeks' gestation, advanced maternal age, previous Caesarean section, desires permanent sterilization with a breech presentation. OPERATIVE FINDINGS: Live male infant, Manuelito breech left sacrum anterior position, weight 6 pounds 7 ounces, ';s 9 and 9 at 1 and 5 minutes respectively. Cord pH 7.31. Normal uterus and normal ovaries and fallopian tubes bilaterally. OPERATION PERFORMED: Repeat low transverse Caesarean section and bilateral total salpingectomy. SPECIMENS: Right and left fallopian tubes. ESTIMATED BLOOD LOSS: 600 mL. URINE OUTPUT: 300 mL of clear urine. INTRAVENOUS FLUIDS: 1100 mL of lactated Ringer's with 20 units of Pitocin. BLOOD PRODUCTS: None. COMPLICATIONS: None. PROCEDURE: The patient was taken to the operating room after having obtained informed consent for the anticipated procedure. This included a discussion of possible complications including but not limited to infection requiring antibiotics, hemorrhage requiring blood transfusion, repair of any damage to internal organs, possible Caesarean hysterectomy. It was reaffirmed that the patient desired permanent sterilization and the procedure that consisted of a total salpingectomy was discussed. The patient expressed an understanding. No questions were offered. Consent forms were signed, dated, witnessed and placed in the chart. The patient received Mefoxin 2 grams intravenously and a Jolley was inserted under sterile conditions. The patient was then transferred to the operating room in stable condition. She was placed on the operating room table in sitting position. Spinal anesthesia was administered without incident. She was immediately repositioned into supine position and the heart rate was auscultated at 125 beats per minute. The abdomen was prepped and she was subsequently draped in the usual sterile fashion. After assuring an adequate level of anesthesia, using a scalpel, a Pfannenstiel incision was made through the previous scar. The incision was carried down through the subcutaneous tissue using Bovie electrocautery. The fascia was identified, it was nicked in the midline and incision was extended bilaterally also using the Bovie electrocautery. The rectus muscles was dissected off the overlying fascia. Rectus muscle was then in the midline by sharp dissection. The parietal peritoneum was entered by blunt dissection. The vesicouterine reflection was identified and the bladder flap was created. A transverse incision was then made on the lower uterine segment. Upon performing amniotomy at which time a minimal amount of amniotic fluid was noted, the presenting part was noted to be the sacrum. Breech extraction was then performed by routine manner and the baby was delivered atraumatically. On the operative field, the infant's mouth and nose were bulb suctioned as umbilical cord was doubly clamped and cut. The infant was handed off the operative field to the compressor technician in attendance. A segment of the cord was obtained for cord pH analysis with the results as above. By manual extraction, the placenta was delivered. It was grossly intact with three vessels present in the cord. The uterus was then exteriorized for closure. This was done in two layers using 0 Vicryl; the first layer was in a running interlocking fashion, the second layer was in a horizontal imbricating fashion. After assuring adequate hemostasis, the pelvic viscera was examined with the findings as above. Attention was then directed to the left fallopian tube. At the fimbriated end and in the isthmic portion, the mesosalpinx were grasped using Newnan clamps. Then using the CovFITiSTen apparatus, complete salpingectomy was performed. Hemostasis was assured. The specimen was submitted to pathology. A similar procedure was performed on the left fallopian tube and again specimen was submitted to pathology for further confirmation. After assuring adequate hemostasis, attention was redirected to the uterine incision. The bladder flap was reapproximated using 2-0 chromic in a running fashion. The uterus was returned to the abdominal cavity and the paracolic gutters were cleared of all debris. Again hemostasis was assured. The parietal peritoneum was reapproximated using 3-0 chromic in a running fashion and the rectus muscle was reapproximated in midline also using 3-0 chromic in a running fashion. The fascia was reapproximated using 1-0 Vicryl in a running fashion. The subcutaneous tissue was reapproximated using plain 0 catgut in a running fashion and the skin was reapproximated using surgical clips. The patient was then repositioned in a frog-leg manner. Bimanual exploration was performed. The uterus was evacuated of additional clots and blood and it was noted to be contracted and firm. The patient was then transferred back to R #2 in stable condition. Mother and baby were bonding, both in stable condition. Dr. Alvarado Fox was present for the entire duration from beginning to end. His presence and expertise were needed for the followin. Assuring adequate visualization of the operative field at all times. 2. The safe and atraumatic delivery of the . 3. Assuring adequate hemostasis throughout. Latha Jim Gerber MD MTDD
[2018-04-23] MEDS: Oxycodone/Acetaminophen 5/325 mg Tab PO PRN (19:36)
[2018-04-24] MEDS: Oxycodone/Acetaminophen 5/325 mg Tab PO PRN ×4 (04:25→22:00)
[2018-04-24 07:39] LABS: HEMOGLOBIN 11.4 g/dL (11.0-16.0); MEAN CELL VOLUME 89.2 fL (81.0-99.0); MEAN CORPUSCULAR HEMOGLOBIN 29.4 pg (27.0-31.0); MEAN PLATELET VOLUME 11.6 fL (7.2-11.7); RBC 3.88 Mil/uL (3.80-5.20); RED CELL DISTRIBUTION WIDTH 13.9 % (11.5-14.5); WHITE BLOOD COUNT 8.6 K/uL (4.8-10.8)
[2018-04-24 08:45] VITALS: RESP 18
[2018-04-24] MEDS: Simethicone 80 mg Chewtab PO SCH ×4 (09:45→21:09)
[2018-04-24] MEDS: Prenatal Multivit/Folic Acid/Iron Tab PO SCH (09:45)
--- NOTE | 2018-04-24 10:11 | OBPPN ---
Datetime: 04/24/2018 09:37 PP Pain Prov: Within normal limits PP Nausea Prov: Denies PP Flatus Prov: Yes PP BM Prov: No PP Breasts Prov: Normal PP Abdomen/Uterus Prov: Normal PP Lochia Prov: Normal PP C/S Incision Prov: Normal PP Comments Phys Exam Prov: Incision: dressing removed incision C/D/I Abd: soft, appropriately tender to palpation no guarding PP Impression Prov: Normal progression PP Plan Prov: Continue present management PP Progress Note Prov: s/p C/S PPD#1, EBL: 600cc VSS Tolerating regular diet Encourage ambulation MOM, Colace PRN Continue present care IP PP Procedures: None Vital Signs Provider PP: Reviewed; Within Normal Limits
[2018-04-24 16:11] VITALS: PULSE 84
[2018-04-25] MEDS: Oxycodone/Acetaminophen 5/325 mg Tab PO PRN ×2 (03:10→13:06)
[2018-04-25 08:38] VITALS: BP 91/68; TEMP 97.3; O2SAT 98
[2018-04-25] MEDS: Simethicone 80 mg Chewtab PO SCH (09:27)
[2018-04-25] MEDS: Prenatal Multivit/Folic Acid/Iron Tab PO SCH (09:28)
[2018-04-25] MEDS ORDERED: Influenza Vaccine 60 mcg/0.5 mL SYR (4YR UP) IM ONE (09:56)
--- NOTE | 2018-04-25 14:06 | OBPPN ---
Datetime: 04/25/2018 10:13 PP Pain Prov: Within normal limits PP Nausea Prov: Denies PP Flatus Prov: Yes PP BM Prov: Yes PP Breasts Prov: Not Done PP Heart Prov: Normal PP Lungs Prov: Normal PP Lochia Prov: Normal PP Vulva/Perineum Prov: Normal PP CVA Tenderness Prov: Normal PP Extremities Prov: Normal PP C/S Incision Prov: Normal PP Progress Prov: Normal PP Comments Phys Exam Prov: Incision clean, dry and intact PP Impression Prov: Normal progression PP Plan Prov: Continue present management PP Progress Note Prov: POD # 2 S/P Primary C/S for Breech presentation PP H_H 11.4/34.6 / O+ Stable and Satisfactory condition and recovery Requesting early D/C home Discharged home with instructions and Rx for Percocer Will f/up with her doctor in 5-7 days for staple removal Advised to continue pelvic rest x 6-8 weeks Vital Signs Provider PP: Reviewed
--- NOTE | 2018-04-25 14:09 | OBDCSUM ---
Datetime: 04/25/2018 12:54 Discharged to, Provider: Home Follow up at, Provider: [facility] Disch Instr Activity: Normal activity Disch Instr Diet: Regular Discharge Diet restrict Prov: none Discharge Instructions, Provider: Routine instructions given Discharge Diagnosis, Provider: Term Delivered Discharge Time: 04/25/2018 13:00 Follow up in weeks, Provider: Disch Referrals: None Disch Activity Restrictions: No sexual activity; Nothing in vagina - [place], tampons, douche Discharge Comment, Provider: POD # 2 S/P Primary C/S for Breech presentation PP H_H 11.4/34.6 / O+ Stable and Satisfactory condition and recovery Requesting early D/C home Discharged home with instructions and Rx for Percocer Will f/up with her doctor in 5-7 days for staple removal Advised to continue pelvic rest x 6-8 weeks Contraception after Delivery: Tubal Ligation
== END 2018-04-25 13:45 | disposition home or self-care (01) | DRG 784 ==
LOC: C.EROB 06:50 → C.4D 07:22 → C.4M 14:35
PROVIDERS: ADMIT Obstetrics & Gynecology; ATTEND Obstetrics & Gynecology
PROC: 10D00Z1 Extraction of Products of Conception, Low, Open Approach (ICD-10-PCS; principal; 2018-04-23)
PROC: 0UT70ZZ Resection of Bilateral Fallopian Tubes, Open Approach (ICD-10-PCS; 2018-04-23)
DX: O34.211 Maternal care for low transverse scar from previous cesarean delivery (principal); O98.32 Other infections with a predominantly sexual mode of transmission complicating childbirth; O99.834 Other infection carrier state complicating childbirth; A63.0 Anogenital (venereal) warts; O32.1XX0 Maternal care for breech presentation, not applicable or unspecified; Z3A.39 39 weeks gestation of pregnancy; Z37.0 Single live birth; Z30.2 Encounter for sterilization